=== PATIENT | male | born 1955 | race Two or more races ===

== ENCOUNTER 2017-12-10 18:25 | Emergency (ER) | payer OTHER ==
[~2017-12-10] VITALS: Ht 172.7 cm; Wt 87.5 kg
[2017-12-10 19:10] VITALS: BP 185/104
[2017-12-10] MEDS ORDERED: LIDOCAINE700 M1 TP (19:17)
[2017-12-10] MEDS ORDERED: ROBAXIN500 MG PO (19:17)
[2017-12-10] MEDS ORDERED: IBUPROFEN600 MG ORAL (19:17)
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
[2017-12-10 19:25] VITALS: BP 172/87
[2017-12-10 19:30] VITALS: BP 172/87
== END 2017-12-10 19:30 | disposition home or self-care (01) ==
LOC: EMR 19:24
DX: M54.6 Pain in thoracic spine (principal); V43.62XA Car passenger injured in collision with other type car in traffic accident, initial encounter; Y92.410 Unspecified street and highway as the place of occurrence of the external cause; I10 Essential (primary) hypertension; E11.9 Type 2 diabetes mellitus without complications
CPT/HCPCS: 99283